=== PATIENT | female | born 1985 | race Caucasian/White ===

== ENCOUNTER 2019-11-25 16:07 | Inpatient (IN) ==
[2019-11-25] MEDS ORDERED: NS 1,000 ML IV ONE (16:29)
[2019-11-25 16:52] LABS: BASO# 0.02 X1000 (0.0-0.2); BASO% 0.3 % (0.0-0.8); EOS# 0.13 X1000 (0.0-0.7); EOS% 2.1 % (0.0-10.0); HEMATOCRIT 32.2 % (37.0-47.0); HEMOGLOBIN 10.6 g/dL (12.0-16.0); IMM GRAN# 0.01 X1000 (0.0-0.04); IMM GRAN% 0.2 % (0.0-0.5); LYMPH# 1.79 X1000 (1.2-3.4); LYMPH% 28.9 % (20.5-51.1); MCH 20.2 PG (27-31); MCHC 32.9 g/dL (33-37); MCV 61.5 FL (81-99); MONO% 8.1 % (1.7-9.3); NEUT# 3.74 X1000 (1.4-6.5); NEUT% 60.4 % (42.2-75.2); PLT 268 X1000 (130-400); RBC 5.24 XMIL (4.2-5.4); RDW 17.6 % (11.5-14.5); WBC 6.19 X1000 (4.8-10.8)
[2019-11-25 17:11] LABS: AGAP 15; ALBUMIN 4.4 g/dL (3.5-5.0); ALKALINE PHOSPHATASE 54 U/L (32-104); BUN 8 mg/dL (8-22); CALCIUM 7.8 mg/dL (8.8-10.2); CHLORIDE 93 mmol/L (98-107); COSMO 258; CREATININE 0.6 mg/dL (0.5-0.9); ESTIMATED GFR > 60; GLUCOSE 107 mg/dL (70-104); GOT 30 U/L (10-30); GPT 35 U/L (10-36); POTASSIUM 3.5 mmol/L (3.5-5.1); SALICYLATES < 3.00 mg/dL (3-10); SODIUM 129 mmol/L (136-145); TCO2 21 mmol/L (25-35); TOTAL PROTEIN 6.6 g/dL (6.3-8.3)
[2019-11-25 17:50] LABS: URINE SOURCE CLEAN CATCH
[2019-11-25 17:55] LABS: BILIRUBIN URINE NEGATIVE (NEGATIVE); BLOOD URINE MODERATE (NEGATIVE); COLOR STRAW; GLUCOSE URINE NEGATIVE (NEGATIVE); KETONE URINE NEGATIVE (NEGATIVE); LEUKOCYTES URINE NEGATIVE (NEGATIVE); NITRITE URINE NEGATIVE (NEGATIVE); PROTEIN URINE NEGATIVE (NEGATIVE); SP GRAVITY URINE 1.005; TURBIDITY URINE CLEAR (CLEAR); UROBILINOGEN URINE NORMAL (NORMAL)
[2019-11-25 17:57] LABS: UR EPITHELIAL CELLS <10 /HPF (<10); URINE BACTERIA NEGATIVE /HPF; URINE RBC <10 /HPF (<10); URINE WBC <10 /HPF (<10)
[2019-11-25 18:05] LABS: UR AMPHETAMINES QUAL NONE DETECTED (NONE DETECT); UR BARBITUATES QUAL NONE DETECTED (NONE DETECT); UR BENZODIAZEPIN QUAL NONE DETECTED (NONE DETECT); UR CANNABINOIDS QUAL NONE DETECTED (NONE DETECT); UR COCAINE QUAL NONE DETECTED (NONE DETECT); UR METHADONE QUAL NONE DETECTED (NONE DETECT); UR METHAMPHETAMINE QUAL NONE DETECTED (NONE DETECT); UR OPIATES QUAL NONE DETECTED (NONE DETECT); UR OXYCODONE QUAL NONE DETECTED (NONE DETECT); UR PCP QUAL NONE DETECTED (NONE DETECT); UR PROPOXYPHENE QUAL NONE DETECTED (NONE DETECT); UR TCA QUAL NONE DETECTED (NONE DETECT)
--- NOTE | 2019-11-25 18:07 | Diag Imaging Result Doc PS360 ---
EXAM: CT HEAD/C-SPINE W/O CONTRAST INDICATION: head injury/pain TECHNIQUE: This exam was performed using automated exposure control, adjustment of mA or kV according to patient size, and/or use of iterative reconstruction technique. COMPARISON: None. FINDINGS: Head: There is no definite acute infarct given the limited sensitivity of CT versus MRI. There is no discrete intracranial mass, mass effect, or intracranial hemorrhage. The surrounding soft tissues are essentially unremarkable. The calvaria is intact. C-spine: The central canal appears to be grossly patent. There is no discrete fracture, subluxation, or intrinsic osseous lesion. The surrounding soft tissues are essentially unremarkable. IMPRESSION: 1.No evidence of acute intracranial pathology. 2.No evidence of fracture or other definite acute C-spine injury. Electronically signed by Gerard Ryan 11/25/2019 6:05 PM
--- NOTE | 2019-11-25 18:37 | PROVIDER DOCUMENTATION ---
This chart was entered by Nilda Vargas Scribe, acting as scribe for Daniel Hines MD. HPI-Syncope/Dizziness - General Chief Complaint: Syncope Stated Complaint: DIZZY Time Seen by Provider: 11/25/19 16:23 Source: patient, family () Allergies/Adverse Reactions: Patient Allergies Allergy/AdvReac Type Severity Reaction Status Date / Time No Known Allergies Allergy Verified 09/10/17 05:34 Home Medications: Home Medication List Medication Instructions Recorded Confirmed Last Taken Type Metronidazole [Flagyl] 11/25/19 11/25/19 Unknown History Promethazine [Phenergan] 12.5 11/25/19 Unknown History Sertraline [Zoloft] 11/25/19 Unknown History - History of Present Illness-Syncope/Dizzy Nature of Presenting Problem: 34yof presents to ED cc syncope, insomnia for 3 days, shaky, confused and dehydrated according to who is at bedside. reports pt is 10 months post-, just started Flagyl for an intenstional infection, Phenegran, Zoloft and Belsomna and has never taken any of these meds before. Pt is tearful, having 'outbursts' as if she is waking from sleep, but A&Ox3 upon exam. Pt is currently on her menstrual cycle. 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 If witnessed syncope, by whom?: Prior Episodes: reports: no prior history Onset/Duration: reports: this afternoon Timing: reports: still present, changing over time Position/Activity at time of episode: reports: sitting Symptoms prior to episode: reports: lightheaded, nausea/vomiting Context: reports: lost consciousness Loss of Consciousness: brief (seconds) Location of injury. (If syncope resulted in an injury.): reports: none Current Symptoms: reports: lightheaded, dizzy, lightheaded Recently Seen Here or By Another Healthcare Provider: Yes (saw PCP yesterday) Review of Systems - Adult - REVIEW OF SYSTEMS - ADULT Constitutional: reports: see HPI, forrest. denies: chills, fever Eyes: reports: no symptoms reported Ears, Nose, Mouth & Throat: reports: see HPI, other (dehydrated) Cardiovascular: reports: no symptoms reported Respiratory: reports: no symptoms reported Gastrointestinal: reports: no symptoms reported Genitourinary: reports: no symptoms reported Musculoskeletal: reports: no symptoms reported Integumentary: reports: no symptoms reported Neurological: reports: see HPI, dizziness/vertigo, syncope Psychiatric: reports: no symptoms reported Endocrine: reports: no symptoms reported Hematologic/Lymphatic: reports: no symptoms reported Allergic/Immunologic: reports: no symptoms reported All Other Systems: Reviewed and Negative Past History - Adult - PAST MEDICAL HISTORY-ADULT Review of Records: reports: Nursing Assessment Review, Medications Reviewed, Social history reviewed & non-contributory. Major Childhood Illnesses: reports: denies history Cardiovascular: reports: denies history Respiratory: reports: denies history Gastrointestinal: reports: denies history Obstetrical/Gynecological: reports: denies history Genitourinary: reports: denies history Musculoskeletal: reports: denies history Neurological: reports: denies history Endocrine/Immune: reports: denies history Other Conditions: reports: denies history - PRIOR SURGERIES/PROCEDURES Surgical/Procedure History: reports: other (adrenal gland removal) - IMMUNIZATION STATUS Childhood Immunizations: See Nurse Assessment Flu Vaccine: See Nurse Assessment - FAMILY HISTORY Family History: reviewed, not pertinent Physical Exam-General - PHYSICAL EXAM-ADULT Initial Vital Signs Reviewed: Yes - CONSTITUTIONAL General Appearance: appears well, alert, no apparent distress - EYES Eyes: PERRL/EOMI, pink conjunctivae. negative: photophobia - HEAD, EARS, NOSE, MOUTH & THROAT HENMT: normocephalic/atraumatic, moist mucous membranes. negative: angioedema - NECK Neck: supple, normal inspection - RESPIRATORY Respiratory: chest non-tender, lungs clear, normal breath sounds. negative: rhonchi, wheezing - CARDIOVASCULAR Cardiovascular: normal peripheral pulses, regular rate, rhythm. negative: bradycardia, tachycardia - GASTROINTESTINAL (ABDOMEN) Abdominal Exam: normal bowel sounds, non tender, soft. negative: guarding, rebound - MUSCULOSKELETAL Extremity: normal inspection, no pedal edema, no calf tenderness, normal capillary refill. negative: deformity, swelling - SKIN Integumentary: normal color, normal turgor, warm/dry. negative: diaphoresis, jaundice, rash - PSYCHIATRIC Psych/Mental Status: normal mood/affect, oriented x 3, tearful Progress - PLAN OF CARE/RESULTS Progress/Plan/Lab Results: Vital Signs - 8 hr 11/25/19 16:14 Temperature 97.3 F L Pulse Rate 105 H Respiratory Rate 20 Blood Pressure 151/64 O2 Sat by Pulse Oximetry 100 Laboratory Results - last 24 hr 11/25/19 11/25/19 11/25/19 16:35 16:35 16:35 WBC 6.19 RBC 5.24 Hgb 10.6 L Hct 32.2 L MCV 61.5 L MCH 20.2 L MCHC 32.9 L RDW Std Deviation 17.6 H Plt Count 268 MPV Not Reportable Immature Gran % (Auto) 0.2 Neut % (Auto) 60.4 Lymph % (Auto) 28.9 [place] % (Auto) 8.1 Eos % (Auto) 2.1 Baso % (Auto) 0.3 Immature Gran # (Auto) 0.01 Neut # (Auto) 3.74 Lymph # (Auto) 1.79 [place] # (Auto) 0.50 Eos # (Auto) 0.13 Baso # (Auto) 0.02 Segmented Neutrophils Not Reportable Sodium Potassium Chloride Carbon Dioxide Anion Gap BUN Creatinine Estimated GFR/1.73 m2 BUN/Creatinine Ratio Glucose Calculated Osmolality Calcium Total Bilirubin AST ALT Alkaline Phosphatase Total Protein Albumin Globulin Albumin/Globulin Ratio Serum , Qual NEGATIVE Urine Source Urine Color Urine Turbidity Urine pH Ur Specific [place] Urine Protein Ur Glucose (Stick) Ur Ketones (Stick) Urine Blood Urine Nitrite Urine Bilirubin Urobilinogen Dipstick Urine Leukocytes Urine WBC (Auto) Urine RBC (Auto) U Epithel Cells (Auto) Urine Bacteria (Auto) Salicylates Urine Opiates Screen Ur Oxycodone Screen Urine Methadone Screen U Propoxyphene Qual Ur Barbituates Screen Ur Tricyclics Screen Ur Phencyclidine Scrn Ur Amphetamines Screen U Methamphetamines Scrn U Benzodiazepines Scrn Urine Cocaine Screen U Cannabinoids Screen Plasma/Serum Ethyl Alc 11/25/19 11/25/19 11/25/19 16:35 17:26 17:26 WBC RBC Hgb Hct MCV MCH MCHC RDW Std Deviation Plt Count MPV Immature Gran % (Auto) Neut % (Auto) Lymph % (Auto) [place] % (Auto) Eos % (Auto) Baso % (Auto) Immature Gran # (Auto) Neut # (Auto) Lymph # (Auto) [place] # (Auto) Eos # (Auto) Baso # (Auto) Segmented Neutrophils Sodium 129 L Potassium 3.5 Chloride 93 L Carbon Dioxide 21 L Anion Gap 15 BUN 8 Creatinine 0.6 Estimated GFR/1.73 m2 > 60 BUN/Creatinine Ratio 13 Glucose 107 H Calculated Osmolality 258 Calcium 7.8 L Total Bilirubin 0.30 AST 30 ALT 35 Alkaline Phosphatase 54 Total Protein 6.6 Albumin 4.4 Globulin 2.0 Albumin/Globulin Ratio 2.0 Serum , Qual Urine Source CLEAN CATCH Urine Color STRAW Urine Turbidity CLEAR Urine pH 6.0 Ur Specific [place] 1.005 Urine Protein NEGATIVE Ur Glucose (Stick) NEGATIVE Ur Ketones (Stick) NEGATIVE Urine Blood MODERATE A Urine Nitrite NEGATIVE Urine Bilirubin NEGATIVE Urobilinogen Dipstick NORMAL Urine Leukocytes NEGATIVE Urine WBC (Auto) <10 Urine RBC (Auto) <10 U Epithel Cells (Auto) <10 Urine Bacteria (Auto) NEGATIVE Salicylates < 3.00 L Urine Opiates Screen NONE DETECTED Ur Oxycodone Screen NONE DETECTED Urine Methadone Screen NONE DETECTED U Propoxyphene Qual NONE DETECTED Ur Barbituates Screen NONE DETECTED Ur Tricyclics Screen NONE DETECTED Ur Phencyclidine Scrn NONE DETECTED Ur Amphetamines Screen NONE DETECTED U Methamphetamines Scrn NONE DETECTED U Benzodiazepines Scrn NONE DETECTED Urine Cocaine Screen NONE DETECTED U Cannabinoids Screen NONE DETECTED Plasma/Serum Ethyl Alc Orders Category Date Time Status Saline Loc NOW Care 11/25/19 16:[address] HEAD/C-SPINE W/O CONTRAST [CT] Stat Exams 11/25/19 16:28 Completed ALCOHOL BLOOD Stat Lab 11/25/19 16:35 Completed CBC WITH ELECTRONIC DIFF [HEME] Stat Lab 11/25/19 16:35 Completed COMPREHENSIVE METABOLIC PANEL [CHEM] Stat Lab 11/25/19 16:35 Completed HCG [ TEST-SERUM] [PREG] Stat Lab 11/25/19 16:35 Completed SALICYLATES [TDM] Stat Lab 11/25/19 16:35 Completed UA [URINALYSIS] [URINALYSIS] Stat Lab 11/25/19 17:26 Completed URINE DRUG SCREEN PL Stat Lab 11/25/19 17:26 Completed 0.9% Sodium Chloride Inj [Ns] 1,000 ml Med 11/25/19 16:29 Discontinued IV 999 mls/hr Result Diagrams: 11/25/19 16:35 11/25/19 16:35 - REASSESSMENT Reassessment #1 Status: unchanged (spoke to Dr Bui , [facility] polypharmacy , hyponatremia, will admit for evaluate and treatment.) - CT/MRI 1 CT Study: Cervical Spine, Head Impression: See EMR Report (IMPRESSION: 1.No evidence of acute intracranial pathology. 2.No evidence of fracture or other definite acute C-spine injury. Electronically signed by Gerard Ryan 11/25/2019 6:05 PM) Departure - Departure Date of Disposition Decision: 11/25/19 Time of Disposition Decision: 18:36 DIAGNOSIS: Hyponatremia, Altered mental state Disposition: ADMITTED INPATIENT 09 Certified Medical Emergency: Emergent Condition: Stable Referrals and Follow-Ups: Handy Leon MD [Primary Care Provider] - - Critical Care Note This patient required my direct & personal management of CC.: No Attestation - Physician/ TIFFANY Attestation Patient care was provided by Advanced Practice Provider:: No The physician spent face to face time with patient:: Yes Advanced Practice Provider documentation review:: Supervising physician onsite and consulted in the evaluation and care of this patient. The physician did have a face to face encounter with the patient. This chart was documented by the indicated scribe, (Nilda Vargas Scribe) and accurately reflects the services I performed and decisions made by me, Daniel Hines MD, as attested by the provider's signature.
[2019-11-25] MEDS ORDERED: ZOFRAN IV PRN (18:52)
[2019-11-25] MEDS ORDERED: TYLENOL PO PRN (18:52)
[2019-11-25] MEDS ORDERED: NS 1,000 ML IV SCH (19:00)
[2019-11-26 06:17] LABS: HEMATOCRIT 28.8 % (37.0-47.0); HEMOGLOBIN 9.3 g/dL (12.0-16.0); MCHC 32.3 g/dL (33-37); MCV 61.8 FL (81-99); PLT 224 X1000 (130-400); RBC 4.66 XMIL (4.2-5.4); RDW 17.8 % (11.5-14.5); WBC 4.01 X1000 (4.8-10.8)
[2019-11-26 07:19] LABS: AGAP 11; ALBUMIN 3.4 g/dL (3.5-5.0); ALKALINE PHOSPHATASE 42 U/L (32-104); BUN 4 mg/dL (8-22); CALCIUM 7.9 mg/dL (8.8-10.2); CHLORIDE 109 mmol/L (98-107); COSMO 279; CREATININE 0.5 mg/dL (0.5-0.9); ESTIMATED GFR > 60; GLUCOSE 89 mg/dL (70-104); GOT 23 U/L (10-30); GPT 27 U/L (10-36); MAGNESIUM 1.6 mg/dL (1.5-2.7); POTASSIUM 3.9 mmol/L (3.5-5.1); SODIUM 142 mmol/L (136-145); TCO2 22 mmol/L (25-35); TOTAL PROTEIN 5.4 g/dL (6.3-8.3)
[2019-11-26 10:03] LABS: OCCULT BLOOD 1 NEGATIVE (NEGATIVE)
[2019-11-26 10:35] LABS: C DIFF TOXIN PL NEGATIVE (NEGATIVE)
--- NOTE | 2019-11-26 10:55 | HISTORY AND PHYSICAL ---
DATE OF PRESENTATION: 11/25/2019 PRIMARY CARE PROVIDER: Handy Leon MD. CHIEF COMPLAINT: Confusion, near syncope. HISTORY OF PRESENT ILLNESS: Ms. Jenniffer Arce is a 34-year-old, female, originally from [place]. She has been here 4 years after meeting her online. 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 She has gone to an urgent care. She has gone to her primary care provider twice, has been started on several different medications, Zoloft for the anxiety to help her sleep, Phenergan for nausea, Flagyl for the stool problems, and Imodium. Yesterday for the first time around 2 p.m. she took Zoloft and Phenergan for the first time. She started the Zoloft first, got a little nauseated, took some Phenergan and within an hour of taking the Zoloft she started having altered mentation, feeling near syncopal, nausea, and was brought to the emergency department where she was found to have a sodium level of 129, and her head CT was negative, but no real complications and most likely this looks like it could possibly just be medication-induced. 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 She claims that she stopped her magnesium 2 months ago because of the diarrhea. The Imodium would help some but would increase her nausea. One of the sleep medications which she was initiated on was Belsomra, which she has stopped. She was unable to provide her primary a stool sample because she has just recently been on her period. When she presented yesterday, she was tearful, was having an outburst from sleep, so last night she states that she actually slept much better, but only for about 3 hours straight. PAST MEDICAL HISTORY: 1. Anxiety. 2. Insomnia. 3. Shamir in 2012. 4. Hyperthyroidism. She is unsure if that was resolved. 5. Beta thalassemia. SURGICAL HISTORY: 1. Left adrenal gland removed. 2. section. SOCIAL HISTORY: Denies tobacco, alcohol, or illicit drug use. She recently had a baby 10 months ago. She has been here from [place] for 4 years, met her online. 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 FAMILY HISTORY: Mother: Arthritis. Father: Intestinal problems. ALLERGIES: She is now adding Zoloft, Phenergan, and Belsomra. She is afraid these are the things that caused her to have these issues. HOME MEDICATIONS: 1. She was on Flagyl 250 mg p.o., and she said it was 3 times daily, but it is in here as daily, which she has only had 2 days worth of that. 2. 5-HTP 100 mg p.o. nightly. 3. Folic acid, vitamin B complex, and vitamin C 400 mcg p.o. twice daily. 4. Belsomra 10 mg p.o. nightly, which she is not going to take anymore. 5. Ferrous sulfate 27 mg p.o. daily. 6. Theanine 200 mcg nightly. 7. Melatonin 1 mg p.o. nightly p.r.n. 8. NAC also known as acetyl cysteine 500 mg p.o. twice daily. 9. Vitamin D3, vitamin K2 20,000 International units and K2 is 200 mg and she takes it daily. 10. Phenergan 12.5 mg p.o. daily p.r.n. She stopped that. Multivitamin with iron and folate. 11. Selenium 400 mcg p.o. daily. 12. Zoloft 50 mg p.o. daily, but she stopped that because of the reaction. REVIEW OF SYSTEMS: Fourteen point review of systems are complete and all were negative for those mentioned above in HPI. She still feels a little bit dizzy today. PHYSICAL EXAMINATION: VITAL SIGNS: Temperature 97.1 degrees, heart rate 71, respiratory rate 16, blood pressure 106/62, O2 saturation 97% on room air, 5 feet 1 inch tall, 140 pounds, BMI is 26.5. GENERAL: Ms. Jenniffer Arce is a 34-year-old, Serbian, who is in no acute distress. She is able answer questions appropriately. HEENT: Atraumatic, normocephalic. Pupils equal, round, reactive to light. Extraocular movements intact. Mucous membranes are moist. NECK: Trachea midline. CARDIOVASCULAR: S1, S2. Regular rate and rhythm. No rubs, gallops, or murmurs. No lower extremity edema. Plus 2 dorsalis and radial pulses. Negative JVD or carotid bruits. PULMONARY: Clear to auscultation bilateral breath sounds. No accessory muscle use or work of breathing noted. GASTROINTESTINAL: Soft. She is tender in all 4 quadrants. Positive bowel sounds x4. EXTREMITIES: Moves all extremities equally with full range of motion. NEUROLOGIC: A and O x3. Follows commands. Sensory is intact. SKIN: Warm, dry, intact. LABORATORY DATA: White blood cells 4000, hemoglobin 9, hematocrit 28, platelet count 224,000. Sodium 142, potassium 3.9, BUN 4, creatinine 0.5, glucose 89, calcium 7.9, magnesium 1.6, bilirubin 0.30, AST 23, ALT 27, albumin 3.4. TSH 0.48, free T4 is 1.47. Serum level is negative. Urinalysis: Moderate blood, but she was just on her menstrual cycle. Salicylate less than 3. Urine drug screen negative. Alcohol 0. IMAGING: Head and cervical spine CT: No evidence of acute intracranial pathology. No evidence of fracture or C-spine injury. ASSESSMENT AND PLAN: 1. Altered mental status or encephalopathy secondary to medication possibly from multiple supplements as well but this has since cleared up. 2. Hyponatremia is resolved. 3. Diarrhea. She was on Flagyl, good stool samples. Her abdomen is tender. Last loose stools yesterday. She finally ate some food this morning. 4. Beta thalassemia. Hemoglobin and hematocrit are currently stable, today on admission is 10 and 32, today is 9 and 28. 5. Severe insomnia with anxiety. She has tried Zoloft, and Melatonin she states used to work, it is not really working anymore. She is afraid the insomnia is from anxiety, so really not sure what to get her started on as far as for her insomnia. Maybe she could do to Xanax, but given her reaction to medications, she may just need higher dosing of her Melatonin. She has only taken 1 mg when she does take it. 6. History of [place]'s with left adrenal gland removed that seems to be stable. 7. History of hyperthyroidism that seems to be resolved as well with normal laboratory. 8. Deep venous thrombosis prophylaxis, sequential compression devices. 9. Poly supplementation use. She takes multiple supplements, not sure what kind cross reaction these things may have with modern medicine. Dictated by KB Stark for Luc Romo MD cc: KB Stark MD MTDD
[2019-11-26 12:49] VITALS: BP 100/60
--- NOTE | 2019-11-26 14:05 | DISCHARGE SUMMARY ---
ADMISSION DATE: 11/25/2019 DISCHARGE DATE: 11/26/2019 ADMISSION DIAGNOSES: 1. Altered mental status or encephalopathy secondary to medication. 2. Hyponatremia, resolved. 3. Diarrhea, improved. 4. Beta thalassemia, hemoglobin and hematocrit stable. 5. Severe insomnia with anxiety. 6. History of Shamir's, left adrenal gland removed. 7. History of hyperthyroidism, resolved. 8. Polysupplementation use. DISCHARGE DIAGNOSIS: 1. Altered mental status, resolved. 2. Hyponatremia, resolved. 3. Diarrhea, improved. She will follow up with her primary care provider for this. 4. Beta thalassemia, hemoglobin and hematocrit stable. 5. Severe insomnia with anxiety. 6. History of Shamir's, left adrenal gland removed. 7. History of hyperthyroidism, resolved. 8. Polysupplementation use. CONSULTATIONS: None. SURGERIES AND PROCEDURES: None. HOSPITAL COURSE: Ms. Jenniffer Arce is a 34-year-old female presented with altered mental status and near syncope from home after taking Zoloft and Phenergan within an hour apart. Sodium was a little bit low. It was down to 129, which has since resolved. Her head CT was negative. Last bowel movement was yesterday, even though she has been having loose stools since October. She is being followed for that by her primary care provider, Dr. Leon, who she will need to go see once she is discharged. She will need to follow up with him. She still has insomnia and anxiety, but this can be managed by her primary. Her vital signs are stable. Her altered mentation has resolved and so she is stable for discharge home. DISCHARGE VITAL SIGNS: Temperature 97.1 degrees, heart rate 71, respiratory rate 16, blood pressure 106/62, O2 saturation 97% on room air. DISCHARGE LAB DATA: White blood cells 4000, hemoglobin 9, hematocrit 28, platelet count 224,000. Sodium 142, potassium 3.9, BUN 4, creatinine 0.5, glucose 89, calcium 7.9, magnesium 1.6, bilirubin 0.30, AST 23, ALT 27, albumin 3.4, TSH 0.48, free T4 is 1.47. Stools negative for blood and C. difficile was negative. DISCHARGE MEDICATIONS: 1. 5-HTP 100 mg p.o. nightly. 2. Folic acid, vitamin B complex and vitamin C. 3. Iron 27 mg p.o. daily. 4. Theanine 200 mg nightly. 5. Melatonin 1 mg p.o. nightly p.r.n. 6. Acetylcysteine 500 mg p.o. twice daily. 7. Vitamin D3 with vitamin K 2. 8. vitamin. 9. Selenium 400 mcg p.o. daily. DISCHARGE ACTIVITY: As tolerated. DISCHARGE DIET: Regular. DISCHARGE INSTRUCTION: Take all medications as prescribed. You may continue all your supplements, but you are at risk for nausea and signs or symptoms of GI upset with that many supplements. You will need to follow up with your primary care provider, Dr. Leon, for any further treatment and evaluation. DISCHARGE DISPOSITION: Home. Dictated by KB Stark for Luc Romo MD cc: KB Stark MD
--- NOTE | 2019-11-26 21:20 | DISCHARGE SUMMARY ---
ADMISSION DATE: 11/25/2019 DISCHARGE DATE: 11/26/2019 ADDENDUM: The patient was admitted yesterday with nausea, abdominal pain, confusion, disorientation. She has been having diarrhea off and on for the past month and a half. Certainly expect that her symptoms have all resolved currently. Expected these were due to multiple medications. She takes multiple herbal medications as well as she has changed prescription medications. We have held most of those. Currently, she is asymptomatic. Therefore, we will discharge home. She can continue to follow up outpatient with GI. cc: Luc Romo MD
--- NOTE | 2019-11-29 08:15 | HISTORY AND PHYSICAL ---
CHIEF COMPLAINT: Syncope, dizziness. HISTORY OF PRESENT ILLNESS: The patient is pleasant 34-year-old female presented to the emergency department with [*]. [*]hydrated. She is 10 months . [*]Flagyl for an intestinal infection, diarrhea [*]for a month, been on Phenergan, Zoloft, recently started on [*]. Does have a history of hypothyroidism. ALLERGIES: No known drug allergies. MEDICATIONS: Flagyl, Zoloft, Phenergan, Belsomra, [*]. REVIEW OF SYSTEMS: Essentially unobtainable from [*]. [*]. He has had no blood in her stool, no blood in her urine. [*]or other illness. PAST MEDICAL HISTORY: She is recently , [*], insomnia. FAMILY HISTORY: Noncontributory. SOCIAL HISTORY: [*]. She denies alcohol or illicit substances. [*]. PHYSICAL EXAMINATION: VITAL SIGNS: [*]. GENERAL: [*]alert [*]. [*] ABDOMEN: Soft, nondistended. [*]. [*] LABORATORY: CBC normal. Sodium 129. ASSESSMENT: 1. Hyponatremia. 2. Altered mental status. 3. [*] [*]. 4. [*]hypothyroidism. PLAN: Admit the patient to the hospital, IV fluids, check labs including thyroid [*]. Will follow. cc: Luc Romo MD
== END 2019-11-26 12:45 | disposition home or self-care (01) | DRG 641 ==
LOC: P.ED 16:07 → P.EDIPHOLD 23:10
PROVIDERS: ATTEND Family Medicine